=== PATIENT | female | born 1995 | race Caucasian/White ===

== ENCOUNTER 2017-04-10 22:41 | Emergency (ER) | payer BC ==
[~2017-04-10] VITALS: Ht 167.6 cm; Wt 65.9 kg
[2017-04-10 22:45] VITALS: TEMP 97.8
[2017-04-10] MEDS ORDERED: QNASL80 MCG/Act NS (22:50)
[2017-04-10] MEDS ORDERED: MIRENA52 MG (23:26)
[2017-04-10 23:28] LABS: BASO # 0.1 (0.0-0.2); BASO % 0.6 % (0.0-2.0); EOS # 0.1 (0.0-0.7); EOS % 1.6 % (0-4.0); GRAN # 5.3 (1.4-6.5); GRAN % 59.6 % (42.2-75.2); HEMATOCRIT 37.3 % (37.0-47.0); HEMOGLOBIN 12.5 g/dl (12.5-16.0); LYMPH # 2.6 (1.2-3.4); MEAN CELL VOLUME 88 fl (80.0-100.0); MEAN CORPUSCULAR HEMOGLOBIN 29 pg (27.0-31.0); MEAN CORPUSCULAR HGB CONC 34 g/dl (33.0-37.0); MEAN PLATELET VOLUME 10.1 fl (7.4-10.4); MONO # 0.8 (0.1-0.6); MONO % 8.8 % (1.7-9.3); PLATELET COUNT 253 K/mm3 (130-400); RED BLOOD COUNT 4.25 M/mm3 (4.10-5.30); REDCELL DISTRIBUTION WIDTH-CV 12.6 % (11.5-14.5); WHITE BLOOD COUNT 8.9 K/mm3 (4.8-10.8)
[2017-04-10 23:38] LABS: ADJUSTED CALCIUM 9.1 mg/dL (8.4-10.2); ALANINE AMINOTRANSFERASE 20 U/L (9-52); ALBUMIN 4.7 gm/dL (3.5-5.0); ALKALINE PHOSPHATASE 71 U/L (50-136); ANION GAP 13 mmol/L (7-16); BILIRUBIN,TOTAL 0.5 mg/dL (0.0-1.0); BLOOD UREA NITROGEN 15 mg/dL (7-17); CALCIUM 9.7 mg/dL (8.4-10.2); CARBON DIOXIDE 24 mmol/L (22-30); CHLORIDE 102 mmol/L (98-107); CREATININE, serum 0.71 mg/dL (0.52-1.25); GLUCOSE 78 mg/dL (74-106); LIPASE 48 U/L (23-300); POTASSIUM 4.2 mmol/L (3.4-5.0); SODIUM 139 mmol/L (137-145); TOTAL PROTEIN 7.5 gm/dL (6.4-8.2)
[2017-04-10 23:49] LABS: TROPONIN-I < 0.012 ng/mL (0.000-0.034)
[2017-04-11 00:01] VITALS: BP 117/73; PULSE 77
== END 2017-04-11 | disposition home or self-care (01) ==
LOC: COL.ER 22:41
PROVIDERS: Emergency Medicine
DX: R07.9 Chest pain, unspecified (principal)

== ENCOUNTER → 2018-02-03 | Outpatient (CLI) | payer BC ==
[~2018-02-03] MED LIST: MIRENA52 MG; QNASL80 MCG/Act NS
== END ==
LOC: COL.RAD 13:22
DX: T83.32XA Displacement of intrauterine contraceptive device, initial encounter (principal)

== ENCOUNTER 2018-06-04 17:44 | Emergency (ER) | payer BC ==
[~2018-06-04] VITALS: Ht 165.1 cm; Wt 64.5 kg
[2018-06-04 17:55] VITALS: BP 137/67; PULSE 80; TEMP 98.7
== END 2018-06-04 20:00 | disposition left against medical advice (07) ==
LOC: COL.ER 17:44
DX: R21 Rash and other nonspecific skin eruption (principal)